=== PATIENT | female | born 1980 | race Caucasian/White ===

== ENCOUNTER 2019-07-28 23:25 | Emergency (ER) | payer BC ==
--- OUTSIDE RECORDS SUMMARY | 2019-07-28 23:27 | XMS REPORT ---
:1980 [facility] Address [address] [place] [address] Care Team Providers Name Role Phone Unavailable Unavailable Unavailable Problems This patient has no known problems. Allergies, Adverse Reactions, Alerts This patient has no known allergies or adverse reactions. Medications This patient has no known medications.
--- OUTSIDE RECORDS SUMMARY | 2019-07-28 23:28 | XMS REPORT | Summary of Care ---
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 [place] [address] Neoplasm of uncertain behavior of skin; [place] Sebaceous cyst; [facility] Melanocytic nevi of face [address] [place] [address] Allergies Active Allergy Reactions Severity Noted Date Comments Ycery-Hihfpniqkk-Awgtbys Unknown - See comments 05/24/2009 Childhood allergy jose miguel-Hc Dvsunuuq-Sywlgsddqr-Sign Unknown - See comments 01/22/2018 childhood -Hc documented as of this encounter (statuses as of 03/30/2019) Medications Medication Sig Dispensed Refills Start Date End Date Status methylPREDNISolone Take 21 tablets 1 Each 0 03/09/2018 Active (MEDROL, RADHA,) 4 mg by mouth tablets SEE-INSTRUCTIONS . follow package directions naproxen 375 mg tablet Take 1 tablet by 30 tablet 2 05/18/2018 Active mouth 2 (two) times daily with meals as needed for Pain (scale 7-10). predniSONE 20 mg Take 1 tablet by 5 tablet 0 09/17/2018 Active tabletIndications: mouth daily. Sciatica of left side methocarbamol (ROBAXIN) Take 1.5 tablets 90 tablet 2 09/28/2018 Active 500 mg by mouth 3 tabletIndications: (three) times Sacroiliac joint pain daily as needed for Pain (scale 4-6) or Pain (scale 7-10). gabapentin 300 mg Take 1 capsule 90 capsule 2 09/28/2018 Active capsuleIndications: by mouth 3 Sacroiliac joint pain (three) times daily. acetaminophen-codeine TAKE 1 TABLET BY 0 03/19/2019 Active 300-30 mg tablet MOUTH EVERY 6 HOURS NEEDED penicillin v potassium TAKE 1 TABLET BY 0 03/19/2019 Active 500 mg tablet MOUTH 4 TIMES A DAY ibuprofen 600 mg tablet TAKE 1 TABLET BY 0 03/19/2019 Active MOUTH EVERY 6 HOURS doxycycline 100 mg Take 1 capsule 28 capsule 0 03/30/2019 Active capsuleIndications: by mouth 2 (two) Hidradenitis suppurativa times daily. clindamycin 1 % Apply to 60 g 5 03/30/2019 Active gelIndications: affected area(s) Hidradenitis suppurativa 2 (two) times daily. 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 documented as of this encounter (statuses as of 03/30/2019) Resolved Problems Problem Noted Date Resolved Date Abdominal pain, generalized 04/15/2011 01/25/2018 Flatulence, eructation, and gas pain 04/15/2011 01/25/2018 documented as of this encounter (statuses as of 03/30/2019) Social History Tobacco Use Types Packs/Day Years Used Date Current Every Day Smoker Cigarettes 0.5 16 Smokeless Tobacco: Never Used Alcohol Use Drinks/Week oz/Week Comments Yes occassional Sex Assigned at Date Recorded Not on file Job Start Date Occupation Industry Not on file Not on file Not on file Travel History Travel Start Travel End No recent travel history available. documented as of this encounter Last Filed Vital Signs Not on filedocumented in this encounter Progress Notes Neo Guzman MD - 03/30/2019 10:10 AM CDT Chief Complaint: HPI Delia Call is a 38 year old female who presents to clinic as a new patient for skin check. Today she addresses "moles" on face, present for years. Denies pain or pruritus. No attempted treatments. She also complains of occasional "boils" in her armpits and groin, present for several years. She denies any activity today. Histories Past Medical History: Diagnosis Date Esophageal reflux Schwachman-Hilda syndrome PMH: Reviewed and noted as above (-) personal hx of skin cancer (-) family hx of skin cancer SH: Lives in [facility] Allergies Allergies Allergen Reactions Cortisporin [Yrady-Jrswsbsyus-Uklfvnyhel-Hc] Unknown - See comments Childhood allergy Cortisporin [Sjimeqjz-Pbixvanzvb-Empt-Hc] Unknown - See comments childhood Medications Current Outpatient Medications on File Prior to Visit Medication Sig Dispense Refill acetaminophen-codeine 300-30 mg tablet TAKE 1 TABLET BY MOUTH EVERY 6 HOURS NEEDED 0 ibuprofen 600 mg tablet TAKE 1 TABLET BY MOUTH EVERY 6 HOURS 0 penicillin v potassium 500 mg tablet TAKE 1 TABLET BY MOUTH 4 TIMES A DAY 0 gabapentin 300 mg capsule Take 1 capsule by mouth 3 (three) times daily. 90 capsule 2 methocarbamol (ROBAXIN) 500 mg tablet Take 1.5 tablets by mouth 3 (three) times daily as needed for Pain (scale 4-6) or Pain (scale 7-10). 90 tablet 2 predniSONE 20 mg tablet Take 1 tablet by mouth daily. 5 tablet 0 naproxen 375 mg tablet Take 1 tablet by mouth 2 (two) times daily with meals as needed for Pain (scale 7-10). 30 tablet 2 methylPREDNISolone (MEDROL, RADHA,) 4 mg tablets Take 21 tablets by mouth SEE- INSTRUCTIONS. followpackage directions 1 Each 0 No current facility-administered medications on file prior to visit. Review of Systems (-)=negative (+)=positive Constitutional: pain (+) Skin: itching (-), growth (+), rash (-) Heme: bleeding (-) Immunosuppressed: (-) Physical Exam There were no vitals taken for this visit. Positive (+), Negative (-) Consitutional: Appears stated age, in no acute distress Pulmonary: No increased work of breathing Psychiatric: Appropriate mood and affect FACE: Positive EYES: Negative NOSE: Negative EARS: Positive NECK: Positive BACK: Negative RIGHT ARM: See image LEFT ARM: Positive (-)=Negative,(+)=Positive Actinic Keratosis (A): erythematous scaling papules Long Hemaniogioma (CH): smooth red and purple papules Dermatitis Erythema (DE): mild to moderate erythema and scaling Dermatitis Lichenified (DL): lichenification and thickening Dermatitis Weeping (DW): weeping and excoriation Inflamed Seborrheic Keratosis (ISK): inflamed warty brown papules and plaques Millium (ML): Small white cystic papule Molluscum Contagiosum (MC): umbilicated papule Nevus Macular (NM): well circumscribed evenly pigmented macule Nevus Papular (INSIDE SALES SUPERVISOR): well circumscribed evenly pigmented papule Psoriasis Circumscribed (PC): well circumscribed erythema and scaling Psoriasis Diffuse (PD): diffuse patches of erythema and scaling Seborrheic Keratosis (SK): verrucous brown papules and plaques Scar (SR): cicatricial change Verruca Vulgarus (W): warty hyperkeratotic papule Assessment/Plan 1. Inflamed EIC with overlying nevus - Etiology and treatment options discussed - After obtaining verbal consent and performing time out, 1 lesion(s) were injected with kenalog 2.5mg/ml. A total of 0.2 ml were injected. Discussed potential for atrophy at the site of treatment. - Start Doxycycline 100mg BID x14 days 2. Hidradenitis suppurativa- bilateral axillae and groin - No activity on exam today (genital exam deferred today by patient) - Start Clindamycin gel BID to all affected areas - Start Hibiclens wash QD 3. Neoplasm of uncertain behavior of skin- L lower rodrigues DDX: benign scar vs DLE vs other - Patient reports it is a result of a previous abscess - Not addressed at length today - Reassess at [place] 4. Multiple benign nevi - Discussed etiology and treatment options - Benign appearing, however they are bothersome to the patient; may return for shave vs punch removal if desired RTC in 4-6 weeks I, Marcos Benjamin, am scribing for, and in the presence of, Dr. Neo Guzman MD who performed and/orordered the services described here-in. Marcos Benjamin 03/30/2019 11:23 I, Dr. Neo Guzman, personally performed and/or ordered the services described in this documentation, as scribed above by Marcos Benjamin in my presence , and it is both accurate and complete. Neo Guzman MD [facility] Dermatology, PGY-3 03/30/2019 6:45 PM documented in this encounter Plan of Treatment Health Maintenance Due Date Last Done Comments PNEUMOCOCCAL 0-64 YEARS COMBINED SERIES (1 1984 of 3 - PCV13) DTaP,Tdap,and Td Vaccines (1 - Tdap) 1997 PAP SMEAR 09/21/2012 09/21/2009, 10/26/2008 MAMMOGRAM 2018 INFLUENZA VACCINE (#1) 2019 documented as of this encounter Results Not on filedocumented in this encounter Visit Diagnoses Diagnosis Hidradenitis suppurativa - Primary Hidradenitis Neoplasm of uncertain behavior of skin Sebaceous cyst Melanocytic nevi of face Benign neoplasm of skin of other and unspecified parts of face documented in this encounter Insurance Payer Benefit Plan Subscriber ID Effective Dates Phone Address Type / Group BCBS OF [facility] [id number] 2018-Jaziel [phone] [address] PPO/POS [place] t [id number] [place] [address] (Work) [id number] documented as of this encounter
--- OUTSIDE RECORDS SUMMARY | 2019-07-28 23:28 | XMS REPORT | Summary of Care ---
:1980 Author Organization [facility] Address [address] [place] [address] Care Team Providers Name Role Phone Marietta Dunlap EZEQUIEL Primary Care Provider Encounter Details Date Type Department Care Team Description 03/30/2019 Orders Only [facility] Doctor Unassigned, No [address] [facility] [place] [address] [address] [place] [address] Allergies Active Allergy Reactions Severity Noted Date Comments Wpraq-Xgffvluuoc-Hkngpzl Unknown - See comments 05/24/2009 Childhood allergy jose miguel-Hc Onknakex-Xmpyrklqpb-Xegv Unknown - See comments 01/22/2018 childhood -Hc [...] 3 Sacroiliac joint pain (three) times daily. 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 documented as of this encounter (statuses [...] Signs Not on filedocumented in this encounter Plan of Treatment Date Type Specialty Care Team Description 03/30/2019 Office Visit Dermatology Dandy Florentino MD [address] [place] [phone] Neo Guzman MD [address] [place] [phone] Health Maintenance Due Date Last Done Comments PNEUMOCOCCAL 0-64 YEARS COMBINED SERIES (1 1984 of 3 - PCV13) DTaP,Tdap,and Td Vaccines (1 - Tdap) 1997 PAP SMEAR 09/21/2012 09/21/2009, 10/26/2008 MAMMOGRAM 2018 INFLUENZA VACCINE (#1) 2019 documented as of this encounter Procedures Procedure Name Priority Date/Time Associated Diagnosis Comments NO SHOW OR MISSED Routine 03/30/2019 9:46 AM APPOINTMENT POLICY CDT ACKNOWLEDGEMENT documented in this encounter Results Not on filedocumented in this encounter Insurance Payer Benefit Plan Subscriber ID Effective Dates Phone Address Type / Group [facility] [id number] 2018-Jaziel [phone] [address] PPO/POS [place] t [id number] [place] [address] documented as of this encounter
--- OUTSIDE RECORDS SUMMARY | 2019-07-28 23:28 | XMS REPORT | Summary of Care ---
:1980 Author Organization [facility] Address [address] [place] [address] Care Team Providers Name Role Phone Marietta Dunlap RN ORTHOPEDIC Primary Care Provider Reason for Visit Reason Comments Skin Check New Evaluation New Patient Encounter Details Date Type Department Care Team Description 03/30/2019 Office Visit [facility] Dandy Florentino MD [address] [place] [phone] Hidradenitis suppurativa (Primary Dx); Dermatology- Neo Guzman MD [address] [place] [address]. 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 Allergies Allergies Allergen Reactions Cortisporin [Nugdy-Pnvrzzubao-Nswfigncjz-Hc] Unknown - See comments Childhood allergy Cortisporin [Rwynktby-Mgjaqmfymo-Hrpv-Hc] Unknown - See comments childhood Medications Current [...] well circumscribed evenly pigmented macule Nevus Papular (MANAGER MARKET INTELLIGENCE): well circumscribed evenly pigmented papule Psoriasis Circumscribed [...] addressed at length today - Reassess at [place] 4. Multiple benign nevi - Discussed etiology [...] both accurate and complete. Neo Guzman MD [facility] Dermatology, PGY-3 03/30/2019 6:45 PM documented [...] Phone Address Type / Group BCBS OF [facility] [id number] 2018-Jaziel [phone] [address] PPO/POS [place] t [id number] [place] [address] (Work) [phone] documented as of this encounter
[2019-07-29 00:04] LABS: Urine Bacteria <20 /HPF (<20); Urine RBC 20-50 /HPF (NONE SEEN)
[2019-07-29 00:06] LABS: Urine Culture Reflex Order REFLEXED
[2019-07-29] MEDS ORDERED: FENTANYL CITR 100 MCG/2 ML ONE (00:33)
[2019-07-29] MEDS ORDERED: ONDANSETRON 4 MG/2 ML VIAL ONE (00:34)
[2019-07-29] MEDS ORDERED: CEFTRIAXONE/SWI 1gm 1 GM/10 ML SYR ONE (00:45)
[2019-07-29] MEDS ORDERED: NA CHLORIDE 0.9% 1,000 ML ONE (00:45)
[2019-07-29 00:56] LABS: Basophils % 0.4 % (0-1.3); Hematocrit 40.2 % (36.0-45.0); Lymphocytes % 26.7 % (15.3-44.8); MPV 7.7 fL (7.6-11.3); RBC Red Blood Cell Count 3.98 M/uL (3.86-4.86)
[2019-07-29 01:09] LABS: Albumin 3.6 g/dL (3.4-5.0); Bilirubin Direct 0.1 mg/dL (0-0.2); Bilirubin Total 0.2 mg/dL (0.2-1.0); Protein, Total 7.1 g/dL (6.4-8.2)
[2019-07-29 01:18] LABS: Urine Blood 2+ (NEG); Urine Glucose NEGATIVE (NEG); Urine Protein 2+ (NEG); Urine Specific Gravity 1.025 (1.005-1.030)
--- NOTE | 2019-07-29 02:22 | EDPHYS ---
Physician Documentation [facility] Name: Delia Call Age: 38 yrs Sex: Female : 1980 Arrival Date: 07/28/2019 Time: 23:27 Bed 19 Private MD: ED Physician Zoltan Baker HPI: 07/29 00:00 This 38 yrs old Female presents to ER via Ambulatory with complaints of Back cp Pain, Painful Urination. 00:00 The patient presents with pain that is acute, with no known mechanism of injury. The cp symptoms are located in the mid back area. Onset: The symptoms/episode began/occurred today. The pain radiates to the abdomen. Associated signs and symptoms: Pertinent positives: dysuria, Pertinent negatives: chest pain, constipation, fever, headache, incontinence, numbness, urinary retention, weakness. 00:00 Patient reports she was seen at clinic today and prescribed Macrobid for UTI today. cp Took 1 dose. 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 - Social history:: Smoking status: Patient uses tobacco products, smokes one pack cigarettes per day. - Ebola Screening: : Patient negative for fever greater than or equal to 101.5 degrees Fahrenheit, and additional compatible Ebola Virus Disease symptoms Patient denies exposure to infectious person Patient denies travel to an Ebola-affected area in the 21 days before illness onset No symptoms or risks identified at this time. ROS: 07/29 00:05 Constitutional: Negative for body aches, chills, fever, poor PO intake. cp 00:05 Eyes: Negative for injury, pain, redness, and discharge. cp 00:05 ENT: Negative for drainage from ear(s), ear pain, sore throat, difficulty swallowing, difficulty handling secretions. 00:05 Cardiovascular: Negative for chest pain. 00:05 Respiratory: Negative for cough, shortness of breath, wheezing. 00:05 Abdomen/GI: Positive for abdominal pain, Negative for vomiting, diarrhea, constipation. 00:05 Back: Positive for flank pain, bilaterally. 00:05 : Positive for urinary symptoms, hematuria, Negative for vaginal bleeding, vaginal discharge. 00:05 MS/extremity: Negative for injury or acute deformity, decreased range of motion. 00:05 Neuro: Negative for altered mental status, headache, numbness, tingling, weakness. 00:05 All other systems are negative. Exam: 00:12 Constitutional: The patient appears in no acute distress, alert, awake, non-toxic, well cp developed, well nourished, uncomfortable. 00:12 Head/Face: Normocephalic, atraumatic. cp 00:12 Eyes: Periorbital structures: appear normal, Conjunctiva: normal, no exudate, no injection, Sclera: no appreciated abnormality, Lids and lashes: appear normal, bilaterally. 00:12 ENT: External ear(s): are unremarkable, Nose: is normal, Mouth: Lips: moist, Oral mucosa: pink and intact, moist, Posterior pharynx: is normal, airway is patent, no erythema, no exudate. 00:12 Neck: ROM/movement: is normal, is supple, without pain, no range of motions limitations, no nuchal rigidity. 00:12 Chest/axilla: Inspection: normal, Palpation: is normal, no crepitus, no tenderness. 00:12 Cardiovascular: Rate: normal, Rhythm: regular, Edema: is not appreciated. 00:12 Respiratory: the patient does not display signs of respiratory distress, Respirations: normal, no use of accessory muscles, no retractions, no splinting, no tachypnea, labored breathing, is not present, Breath sounds: are clear throughout, no decreased breath sounds, no stridor, no wheezing. 00:12 Abdomen/GI: Inspection: abdomen appears normal, Bowel sounds: active, all quadrants, Palpation: soft, in all quadrants, mild abdominal tenderness, in all quadrants, voluntary guarding, is not appreciated, involuntary guarding, is not appreciated. 00:12 Back: CVA tenderness, is noted bilaterally. 00:12 Neuro: Orientation: to person, place \T\ time. Mentation: is normal, Motor: moves all fours, strength is normal, Sensation: is normal. Vital Signs: 07/28 23:43 BP 110 / 85; Pulse 74; Resp 16; Temp 98.0(O); Pulse Ox 97% on R/A; Weight 63.5 kg; iw Height 4 ft. 9 in. (144.78 cm); Pain 10/10; 07/29 00:30 BP 117 / 85; Pulse 97; Resp 16; Pulse Ox 100% ; rv 01:15 BP 115 / 86; Pulse 91; Resp 15; Pulse Ox 98% on R/A; rv 07/28 23:43 Body Mass Index 30.29 (63.50 kg, 144.78 cm) iw MDM: 07/28 23:41 Patient medically screened. cp 07/29 00:15 Differential diagnosis: Ureterolithiasis UTI, sepsis, appendicitis, colitis. cp 02:20 Data reviewed: vital signs, nurses notes, lab test result(s), radiologic studies, CT cp scan. 02:20 Counseling: I had a detailed discussion with the patient and/or guardian regarding: the cp historical points, exam findings, and any diagnostic results supporting the discharge/admit diagnosis, lab results, radiology results, to return to the emergency department if symptoms worsen or persist or if there are any questions or concerns that arise at home. Response to treatment: the patient's symptoms have markedly improved after treatment, VSS. Pain improved. Will discharge to home for continued monitoring. Patient to stop Macrobid and start Bactrim. 07/28 23:48 Order name: Urine Microscopic Only; Complete Time: 00:36 07/29 01:35 Interpretation: Normal except: UWBC >50; URBC 20-50. 07/28 23:57 Order name: Urine Dipstick--Ancillary (enter results); Complete Time: 34 [facility] 07/29 01:34 Interpretation: Normal except: UBLD 2+; UPROT 2+; UESTR TRACE. 07/28 23:57 Order name: Urine --Ancillary (enter results); Complete Time: :34 [facility] 07/29 00:09 Order name: Basic Metabolic Panel; Complete Time: :34 07/29 01:35 Interpretation: Normal except: CL 108; GLUC 121; GFR 88. cp 07/29 00:09 Order name: CBC with Diff; Complete Time: :34 07/29 01:35 Interpretation: Normal except: MCV 101.0. cp 07/29 00:09 Order name: Creatinine for Radiology; Complete Time: 07/29 00:09 Order name: Hepatic Function; Complete Time: iw 07/29 00:09 Order name: Lipase; Complete Time: iw 07/29 00:13 Order name: Urine Culture EDMS 07/29 00:38 Order name: CT Stone Protocol 07/28 23:48 Order name: Urine Dipstick-Ancillary (obtain specimen); Complete Time: 23:51 cp 07/28 23:48 Order name: Urine Test (obtain specimen); Complete Time: 23:52 cp 07/29 00:09 Order name: IV Saline Lock; Complete Time: 00: iw 07/29 00:09 Order name: Labs collected and sent; Complete Time: 00: iw 07/29 01:36 Order name: PO challenge; Complete Time: 02:06 cp Administered Medications: 00:37 Drug: fentaNYL (PF) 25 mcg Route: IVP; Site: left antecubital; iw 00:57 Follow up: Response: No adverse reaction; Pain is decreased iw 00:37 Drug: Zofran 4 mg Route: IVP; Site: left antecubital; iw 00:57 Follow up: Response: No adverse reaction iw 00:54 Drug: NS 0.9% 1000 ml Route: IV; Rate: 1 bolus; Site: left antecubital; iw 02:16 Follow up: IV Status: Completed infusion; IV Intake: 1000ml rv 00:55 Drug: Rocephin - (cefTRIAXone) 1 grams Route: IVPB; Infused Over: 30 mins; Site: left iw antecubital; 02:17 Follow up: IV Status: Completed infusion rv Disposition: 07/29/19 02:21 Discharged to Home. Impression: Urinary tract infection, site not specified, Low back pain. - Condition is Stable. - Discharge Instructions: Pyelonephritis, Adult. - Prescriptions for Zofran 4 mg Oral Tablet - take 1 tablet by ORAL route every 12 hours As needed; 20 tablet. Tramadol 50 mg Oral Tablet - take 1 tablet by ORAL route every 8 hours as needed; 15 tablet. Bactrim DS 800- 160 mg Oral Tablet - take 1 tablet by ORAL route every 12 hours for 10 days; 20 tablet. - Medication Reconciliation Form, Thank You Letter, Antibiotic Education, Prescription Opioid Use, Work release form form. - Follow up: Private Physician; When: 1 - 2 days; Reason: Worsening of condition. - Problem is new. - Symptoms have improved. Addendum: 07/30/2019 07:32 Co-signature as Attending Physician, Zoltan Baker MD I agree with the assessment and t w4 plan of care. Signatures: Dispatcher [employer] Juani Moore RN RN iw Abebe Betancourt, HECTOR [place] Zoltan Roberts MD MD tw4 Dedrick Shankar RN RN rv Corrections: (The following items were deleted from the chart) 07/29 02:28 02:21 07/29/2019 02:21 Discharged to Home. Impression: Urinary tract infection, site rv not specified; Low back pain. Condition is Stable. Forms are Work release form, Medication Reconciliation Form, Thank You Letter, Antibiotic Education, Prescription Opioid Use. Follow up: Private Physician; When: 1 - 2 days; Reason: Worsening of condition. Problem is new. Symptoms have improved. cp
--- NOTE | 2019-07-29 02:22 | ER ---
Nurse's Notes [facility] Name: Delia Call Age: 38 yrs Sex: Female : 1980 Arrival Date: 07/28/2019 Time: 23:27 Bed 19 Private MD: Diagnosis: Urinary tract infection, site not specified;Low back pain Presentation: 07/28 23:42 Presenting complaint: Patient states: pain with urination X 2 days, was seen at clinic iw today and prescribed Macrobid, now has pain to lower abd and mid back. Transition of care: patient was not received from another setting of care. Onset of symptoms was July 26, 2019. Risk Assessment: Do you want to hurt yourself or someone else? Patient reports no desire to harm self or others. Initial Sepsis Screen: Does the patient meet any 2 criteria? No. Patient's initial sepsis screen is negative. Does the patient have a suspected source of infection?. Care prior to arrival: Medication(s) given: macrobid 100 PO. 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 - Social history:: Smoking status: Patient uses tobacco products, smokes one pack cigarettes per day. - Ebola Screening: : Patient negative for fever greater than or equal to 101.5 degrees Fahrenheit, and additional compatible Ebola Virus Disease symptoms Patient denies exposure to infectious person Patient denies travel to an Ebola-affected area in the 21 days before illness onset No symptoms or risks identified at this time. Screenin/16 00:29 Abuse screen: Denies threats or abuse. Denies injuries from another. Nutritional iw screening: No deficits noted. Tuberculosis screening: No symptoms or risk factors identified. Fall Risk IV access (20 points). Assessment: 00:28 General: Appears uncomfortable, Behavior is calm, cooperative. Pain: Complains of pain iw in back, right lower quadrant and left lower quadrant Pain currently is 10 out of 10 on a pain scale. Neuro: Level of Consciousness is awake, alert, obeys commands, Oriented to person, place, time, situation, Moves all extremities. Full function. Cardiovascular: Patient's skin is warm and dry. Respiratory: Respiratory effort is even, unlabored, Respiratory pattern is regular, symmetrical. GI: Reports lower abdominal pain. : Reports burning with urination, pain in bilateral in suprapubic area flank(s). Derm: Skin is intact, is healthy with good turgor. Musculoskeletal: Range of motion: intact in all extremities. 00:56 Reassessment: Patient appears in no apparent distress at this time. Patient and/or iw family updated on plan of care and expected duration. Pain level reassessed. Patient is alert, oriented x 3, equal unlabored respirations, skin warm/dry/pink. pt has been medicated for pain, IVF infusing freely to LAC, Rocephin given, awaiting CT. Vital Signs: 07/28 23:43 BP 110 / 85; Pulse 74; Resp 16; Temp 98.0(O); Pulse Ox 97% on R/A; Weight 63.5 kg; iw Height 4 ft. 9 in. (144.78 cm); Pain 10/10; 07/29 00:30 BP 117 / 85; Pulse 97; Resp 16; Pulse Ox 100% ; rv 01:15 BP 115 / 86; Pulse 91; Resp 15; Pulse Ox 98% on R/A; rv 07/28 23:43 Body Mass Index 30.29 (63.50 kg, 144.78 cm) iw ED Course: 07/28 23:27 Patient arrived in ED. ds1 23:34 Juani Beckwith, WALTER is Primary Nurse. iw 23:36 Abebe Betancourt PA is PHCP. cp 23:36 Zoltan Baker MD is Attending Physician. cp 23:43 Triage completed. iw 23:44 Arm band placed on. iw 07/29 00:00 Patient has correct armband on for positive identification. Pulse ox on. NIBP on. rv 00:15 Missed attempt(s): 22 gauge in right antecubital area. Bleeding controlled, band aid iw applied, catheter tip intact. 00:25 Inserted saline lock: 22 gauge in left antecubital area, using aseptic technique. Blood rv collected. 01:19 CT completed. Patient tolerated procedure well. Patient moved to CT via wheelchair. Patient moved back from CT. 01:26 CT Stone Protocol In Process Unspecified. EDMS 02:23 No provider procedures requiring assistance completed. IV discontinued, intact, rv bleeding controlled, No redness/swelling at site. Pressure dressing applied. Administered Medications: 00:37 Drug: fentaNYL (PF) 25 mcg Route: IVP; Site: left antecubital; iw 00:57 Follow up: Response: No adverse reaction; Pain is decreased iw 00:37 Drug: Zofran 4 mg Route: IVP; Site: left antecubital; iw 00:57 Follow up: Response: No adverse reaction iw 00:54 Drug: NS 0.9% 1000 ml Route: IV; Rate: 1 bolus; Site: left antecubital; iw 02:16 Follow up: IV Status: Completed infusion; IV Intake: 1000ml rv 00:55 Drug: Rocephin - (cefTRIAXone) 1 grams Route: IVPB; Infused Over: 30 mins; Site: left iw antecubital; 02:17 Follow up: IV Status: Completed infusion rv Intake: 02:16 IV: 1000ml; Total: 1000ml. rv Outcome: 02:21 Discharge ordered by MD. cp 02:24 Discharged to home ambulatory, with family. rv 02:24 Condition: good 02:24 Discharge instructions given to patient, family, Instructed on discharge instructions, follow up and referral plans. medication usage, Demonstrated understanding of instructions, follow-up care, medications, Prescriptions given X 3. 02:28 Patient left the ED. rv Signatures: Dispatcher [employer] EDMA Byron Gonzalez Amy Kovacs ds1 Juani Beckwith RN RN iw Abebe Betancourt PA PA cp Vicente, Ronaldo, RN RN rv Corrections: (The following items were deleted from the chart) 07/28 23:49 23:43 Resp 16bpm; 63.5 kg; Height 4 ft. 9 in.; BMI: 30.3; Pain 10/10; iw iw 23:57 23:43 BP 110 / 85; Pulse 74bpm; Resp 16bpm; Pulse Ox 97% RA; 63.5 kg; Height 4 ft. 9 iw in.; BMI: 30.2; Pain 10/10; iw
[2019-07-29 03:31] VITALS: TEMP 98
[2019-07-29 03:33] VITALS: BP 115/86; O2SAT 98
--- NOTE | 2019-07-29 11:19 | RAD REPORT ---
EXAM DESCRIPTION: Stone Protocol CLINICAL HISTORY: FLANK PAIN TECHNIQUE: Contiguous axial images obtained through the abdomen and pelvis without IV contrast. Carla nal and sagittal reformatted images were provided. This exam was performed according to our departmental dose-optimization program, which includes autom ated exposure control, adjustment of the mA and/or kV according to patient size and/or use of iterati ve reconstruction technique. COMPARISON: None available for comparison. FINDINGS: Lung bases: Mosaic attenuation bilaterally. Liver: Grossly unremarkable Gallbladder and biliary system: Unremarkable Pancreas: Diffuse fatty parenchymal replacement. Spleen: Grossly unremarkable Adrenals: Unremarkable Kidneys: No calculi. No hydronephrosis. Bowel: Moderate stool within the proximal to mid large bowel. No obstruction. No appreciable mucosal thickening. Appendix: Normal caliber appendix. No findings to suggest acute appendicitis. Urinary bladder: The urinary bladder is decompressed. Reproductive: Unremarkable as visualized Lymph nodes: No pathologically enlarged lymph nodes. Peritoneum: No focal fluid collection. No free air. Vessels: Minimal atherosclerotic disease. No abdominal aortic aneurysm. Abdominal wall: Tiny fat-containing umbilical hernia. Bones: Mild multilevel spondylosis. No acute fracture. IMPRESSION: 1. No renal, ureteral or bladder calculi. No evidence for renal obstruction. 2. Mosaic attenuation within the lungs bilaterally. Differential considerations include small airwa ys disease, small vessel disease and interstitial infiltrates. 3. Other findings as above. Electronically signed by: Jacob Sherman MD 07/29/2019 1:39 AM REPTILE KEEPER Due to temporary technical issues with the PACS/Fluency reporting system, reports are being signed by the in house radiologist as a courtesy to ensure prompt reporting. The interpreting radiologist is f ully responsible for the content of the report.
== END 2019-07-29 02:28 | disposition home or self-care (01) ==
LOC: ER 23:25
DX: N39.0 Urinary tract infection, site not specified (principal)
CPT/HCPCS: 96365; 87088; 85025; 87086; 80048; 36415; 81025; 80076; 83690; 76377; 74176; 96375; 99284; J3010; J0696; J7030; J2405; 81003; 81015

== ENCOUNTER 2020-10-03 09:45 | Emergency (ER) | payer BC, SELFPAY ==
--- OUTSIDE RECORDS SUMMARY | 2020-10-03 09:48 | XMS REPORT | Continuity of Care Document ---
:1980 Author Organization [facility] t Address [address] [place] [address] Care Team Providers Name Role Phone Thomas RENE Attending Clinician Problems This patient has no known problems. Allergies, Adverse Reactions, Alerts This patient has no known allergies or adverse reactions. Medications This patient has no known medications. Procedures This patient has no known procedures. Encounters Start End Encounter Admission Attending Care Care Encounter Source Date/Time Date/Time Type Type Clinicians Facility Department ID 2019-03-30 2019-03-30 Office TOBY Guzman [id number] 09:47:02 11:32:15 Visit [facility] [id number] [facility] [id number] Results This patient has no known results.
[2020-10-03 10:21] LABS: Absolute Lymphocytes (CBC) 0.7 K/uL (0.7-4.9); Basophils % 0.4 % (0-1.3); Hematocrit 36.5 % (36.0-45.0); Lymphocytes % 9.1 % (15.3-44.8); MPV 7.3 fL (7.6-11.3); RBC Red Blood Cell Count 3.64 M/uL (3.86-4.86)
[2020-10-03 10:37] LABS: Protime INR 1.1
[2020-10-03] MEDS ORDERED: MORPHINE 2 MG/ML SYR ONE (10:38)
[2020-10-03] MEDS ORDERED: ONDANSETRON 4 MG/2 ML VIAL ONE (10:39)
[2020-10-03 10:56] LABS: ALT/SGPT 27 U/L (12-78); AST/SGOT 18 U/L (15-37); Albumin 3.4 g/dL (3.4-5.0); Alkaline Phosphatase 94 U/L (45-117); BUN Blood Urea Nitrogen 13 mg/dL (7-18); Bicarbonate 28 mmol/L (21-32); Bilirubin Direct < 0.1 mg/dL (0-0.2); Bilirubin Total 0.3 mg/dL (0.2-1.0); Glucose Level 104 mg/dL (74-106); NT PRO-BNP 35 pg/mL (<125); Potassium 3.8 mmol/L (3.5-5.1); Sodium Level 141 mmol/L (136-145); Troponin (Emerg Dept Use Only) < 0.02 ng/mL (0.0-0.045)
[2020-10-03 11:18] LABS: Urine Blood TRACE (NEG); Urine Glucose NEGATIVE (NEG); Urine Protein NEGATIVE (NEG); Urine Specific Gravity 1.025 (1.005-1.030)
--- NOTE | 2020-10-03 11:24 | RAD REPORT ---
EXAM DESCRIPTION: RAD - Chest Single View - 10/03/2020 10:35 am CLINICAL HISTORY: CHEST PAIN COMPARISON: June 2016 portable chest TECHNIQUE: AP portable chest image was obtained 10/03/2020 10:35 am . FINDINGS: Lung volumes are low. No focal consolidations seen. Perihilar markings are increased sligh tly from comparison. There is minimal alveolar opacities evident. Heart size is minimally increased from compares. No measurable pleural effusion and no pneumothorax. No acute bony abnormality seen. No acute aortic findings suspected. IMPRESSION: Heart, vasculature and lung markings are fractionally increased from comparison. Patient is relatively on. Correlation is needed with any failure or volume overload findings.
--- NOTE | 2020-10-03 12:58 | RAD REPORT ---
EXAM DESCRIPTION: CT - Chest For Pe Angio - 10/03/2020 12:48 pm CLINICAL HISTORY: Chest pain. CHEST PAIN COMPARISON: No comparisons TECHNIQUE: CT angiogram of the pulmonary arteries was performed with MIP. All CT scans are performed using dose optimization technique as appropriate and may include automated exposure control or mA/KV adjustment according to patient size. FINDINGS: No evidence of pulmonary thromboembolism. No acute aortic finding demonstrated. Mild bilateral ground-glass lung opacities are present likely representing pulmonary edema. No significant pericardial or pleural fluid. No concerning bony finding. IMPRESSION: No evidence of pulmonary thromboembolism. Mild pulmonary edema suspected.
--- NOTE | 2020-10-03 13:35 | ER ---
Nurse's Notes [facility] Name: Delia Call Age: 39 yrs Sex: Female : 1980 Arrival Date: 10/03/2020 Time: 09:46 Bed 13 Private MD: Diagnosis: Chest pain, unspecified Presentation: 10/03 09:46 Chief complaint: EMS states: Sudden onset crushing chest pain while lying in bed this hb morning. SpO2 98% on RA, ASA 324 PO and Fentanyl 50 mcg administered to 20g RAC WASHER HAND. Coronavirus screen: At this time, the client does not indicate any symptoms associated with coronavirus-19. Ebola Screen: No symptoms or risks identified at this time. Initial Sepsis Screen: Does the patient meet any 2 criteria? No. Patient's initial sepsis screen is negative. Does the patient have a suspected source of infection? No. Patient's initial sepsis screen is negative. Risk Assessment: Do you want to hurt yourself or someone else? Patient reports no desire to harm self or others. Onset of symptoms was October 03, 2020. 09:46 Method Of Arrival: EMS: [email or web address] 09:46 Acuity: DOROTEO 3 hb Historical: - Allergies: 10:47 Neomycin Sulfate; ll1 10:47 colistin sulfate; ll1 10:47 thonzonium; ll1 10:47 hydrocortisone; ll1 - PMHx: 10:47 schwan \T\ hilda syndrome; Shwachman-Hilda syndrome; ll1 - PSHx: 10:47 ; Knee surgery; ll1 - Immunization history:: Adult Immunizations up to date. - Social history:: Smoking status: unknown. Screenin:46 Abuse screen: Denies threats or abuse. Nutritional screening: No deficits noted. ll1 Tuberculosis screening: No symptoms or risk factors identified. Fall Risk IV access (20 points). Total Broderick Fall Scale indicates No Risk (0-24 pts). Assessment: 09:55 General: Appears in no apparent distress. Behavior is calm, cooperative, appropriate ll1 for age. Pain: Complains of pain in anterior aspect of left upper chest Pain does not radiate. Pain began 2 hours ago. Neuro: No deficits noted. Cardiovascular: Reports chest pain, Heart tones S1 S2 Capillary refill < 3 seconds Clubbing of nail beds is absent JVD is absent Patient's skin is warm and dry. Pulses are all present. Rhythm is regular. Respiratory: No deficits noted. Breath sounds are clear bilaterally. 11:00 Reassessment: No changes from previously documented assessment. Patient and/or family ll1 updated on plan of care and expected duration. Pain level reassessed. Patient is alert, oriented x 3, equal unlabored respirations, skin warm/dry/pink. 12:02 General: Appears in no apparent distress. uncomfortable, Behavior is calm, cooperative. vg1 Pain: Complains of pain in anterior aspect of left upper chest Pain currently is 6 out of 10 on a pain scale. Quality of pain is described as dull, sharp. Neuro: Level of Consciousness is awake, alert, obeys commands, Oriented to person, place, time, situation. Cardiovascular: Patient's skin is warm and dry. Respiratory: Airway is patent Respiratory effort is even, unlabored. GI: No signs and/or symptoms were reported involving the gastrointestinal system. : No signs and/or symptoms were reported regarding the genitourinary system. EENT: No signs and/or symptoms were reported regarding the EENT system. Derm: Skin is intact, Skin is pink, warm \T\ dry. Musculoskeletal: Circulation, motion, and sensation intact. 13:32 Reassessment: Patient appears in no apparent distress at this time. No changes from vg1 previously documented assessment. Patient and/or family updated on plan of care and expected duration. Pain level reassessed. Patient is alert, oriented x 3, equal unlabored respirations, skin warm/dry/pink. Vital Signs: 09:46 BP 126 / 73; Pulse 99; Resp 18; Pulse Ox 98% on R/A; Pain 8/10; hb 10:08 BP 126 / 73; Pulse 101; Resp 18; Temp 97.3(O); Pulse Ox 100% on R/A; sr5 11:53 BP 114 / 83; Pulse 93; Resp 17; Pulse Ox 98% ; ll1 12:02 BP 98 / 62; Pulse 99; Resp 18; Pulse Ox 97% on R/A; vg1 13:54 BP 93 / 66; Pulse 98; Resp 16; Pulse Ox 98% on R/A; vg1 ED Course: 09:46 Patient arrived in ED. hb 09:46 Arm band placed on. hb 09:47 Mickail[facility] Priyank, [facility] 09:47 Poncho Camp MD is Attending Physician. jmm 09:51 Triage completed. hb 09:53 Alivia Pandya, WALTER is Primary Nurse. ll1 10:08 EKG completed in triage. Results shown to MD. sr5 10:10 Patient has correct armband on for positive identification. Bed in low position. Call sr5 light in reach. Side rails up X 1. radiation monitor on. Pulse ox on. NIBP on. Warm blanket given. 10:10 Initial lab(s) drawn, by me, sent to lab. Maintain EMS IV. Dressing intact. Good blood sr5 return noted. Site clean \T\ dry. Gauge \T\ site: 20 G RAC with twin cath extension, flushed easily, wasted 10 mL blood prior to specimen collection, flushed easily following lab collection. Pt denies discomfort at IV site.. Patient maintains SpO2 saturation greater than 95% on room air. 10:35 XRAY Chest (1 view) In Process Unspecified. EDMS 10:47 No provider procedures requiring assistance completed. Patient did not have IV access ll1 during this emergency room visit. 12:44 Notified Nurse Practitioner and/or Physician Factory Helper of a critical lab result(s), tw2 D-Dimer 635, provider HECTOR Parks notified. 12:49 CT Chest For PE Angio In Process Unspecified. EDMS 13:55 IV discontinued, intact, bleeding controlled, No redness/swelling at site. Pressure vg1 dressing applied. Administered Medications: 10:47 Drug: Zofran (Ondansetron) 4 mg Route: IVP; Site: right antecubital; sr5 13:56 Follow up: Response: No adverse reaction vg1 10:50 Drug: morphine 2 mg Route: IVP; Infused Over: 2 mins; Site: right antecubital; sr5 13:56 Follow up: Response: No adverse reaction vg1 Outcome: 13:34 Discharge ordered by . jm 13:55 Discharged to home via wheelchair. vg1 13:55 Condition: stable 13:55 Discharge instructions given to patient, Instructed on discharge instructions, follow up and referral plans. medication usage, Demonstrated understanding of instructions, follow-up care, medications, Prescriptions given X 2. 13:58 Patient left the ED. vg1 Signatures: Dispatcher [employer] Priyank Padilla PA PA jmm Baxter, Heather, RN RN hb Maria Teresa Nuñez, RN RN tw2 Zen Maher RN RN sr5 Florinda Nicholas RN RN vg1 Alivia Pandya, RN RN ll1
--- NOTE | 2020-10-03 13:35 | EDPHYS ---
Physician Documentation [facility] Name: Delia Call Age: 39 yrs Sex: Female : 1980 Arrival Date: 10/03/2020 Time: 09:46 Bed 13 Private MD: ED Physician Poncho Camp HPI: 10/03 09:50 This 39 yrs old Female presents to ER via Unassigned with complaints of Chest [facility] Pain. 09:50 The patient or guardian reports chest pain that is located primarily in the anterior [facility] chest wall, left. Onset: this morning. The pain does not radiate. Associated signs and symptoms: Pertinent negatives: shortness of breath. The chest pain is described as aching, sharp. This is a 39 year old female with no known chronic medical conditions that presents to the ED with complaints of chest pain beginning this morning. Exact onset unknown. Patient denies history of CAD. 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 Patient states she does perform lifting and strenuous activity but can not recall a known injury. Patient does smoke tobacco and has a family history of CAD. . Historical: - Allergies: 10:47 Neomycin Sulfate; ll1 10:47 colistin sulfate; ll1 10:47 thonzonium; ll1 10:47 hydrocortisone; ll1 - PMHx: 10:47 schwan \T\ hilda syndrome; Shwachman-Hilda syndrome; ll1 - PSHx: 10:47 ; Knee surgery; ll1 - Immunization history:: Adult Immunizations up to date. - Social history:: Smoking status: unknown. ROS: 09:50 Constitutional: Negative for fever, chills, and weight loss. jmm 09:50 Respiratory: Negative for shortness of breath, cough, wheezing, and pleuritic chest pain, Neuro: Negative for headache, weakness, numbness, tingling, and seizure. 09:50 Cardiovascular: Positive for chest pain. 09:50 All other systems are negative. Exam: 09:50 Head/Face: atraumatic. Eyes: EOMI, no conjunctival erythema appreciated ENT: Moist jmm Mucus Membranes Neck: Trachea midline, Supple 09:50 Cardiovascular: Regular rate and rhythm. No edema appreciated Respiratory: Normal respirations, no respiratory distress appreciated Abdomen/GI: Non distended, soft Back: Normal ROM Skin: General appearance color normal MS/ Extremity: Moves all extremities, no obvious deformities appreciated, no edema noted to the lower extremities Neuro: Awake and alert, normal gait Psych: Behavior is normal, Mood is normal, Patient is cooperative and pleasant 09:50 Constitutional: The patient appears alert, awake, anxious, uncomfortable. 09:50 Chest/axilla: Palpation: tenderness, that is moderate, of the anterior aspect of left upper chest, that totally reproduces the patient's complaints. 10:06 ECG was reviewed by the Attending Physician. [facility] Vital Signs: 09:46 BP 126 / 73; Pulse 99; Resp 18; Pulse Ox 98% on R/A; Pain 8/10; hb 10:08 BP 126 / 73; Pulse 101; Resp 18; Temp 97.3(O); Pulse Ox 100% on R/A; sr5 11:53 BP 114 / 83; Pulse 93; Resp 17; Pulse Ox 98% ; ll1 12:02 BP 98 / 62; Pulse 99; Resp 18; Pulse Ox 97% on R/A; vg1 13:54 BP 93 / 66; Pulse 98; Resp 16; Pulse Ox 98% on R/A; vg1 MDM: 09:48 Patient medically screened. [facility] 10:06 The patient was not given aspirin in the Emergency Department. Administered by EMS. [facility] 13:32 Data reviewed: vital signs, nurses notes. Counseling: I had a detailed discussion with [facility] the patient and/or guardian regarding: the historical points, exam findings, and any diagnostic results supporting the discharge/admit diagnosis, lab results, radiology results, the need for outpatient follow up, to return to the emergency department if symptoms worsen or persist or if there are any questions or concerns that arise at home. 13:32 ED course: Patient is alert and non toxic in appearance in the ED. CP has decreased. I [facility] do not suspect ACS at this time. HEART SCORE = 1. Negative CTA for PE. Patient advised to follow up with pcp and otherwise given strict return precautions patient understood and agrees with the plan of care. . 10/03 09:49 Order name: Basic Metabolic Panel [facility] 10/03 09:49 Order name: CBC with Diff [facility] 10/03 09:49 Order name: LFT's; Complete Time: 11:00 [facility] 10/03 09:49 Order name: Magnesium; Complete Time: 11:00 [facility] 10/03 09:49 Order name: NT PRO-BNP; Complete Time: 11:00 [facility] 10/03 09:49 Order name: PT-INR; Complete Time: 10:39 [facility] 10/03 09:49 Order name: Troponin (emerg Dept Use Only); Complete Time: 11:00 [facility] 10/03 09:49 Order name: Basic Metabolic Panel; Complete Time: 11:00 [facility] 10/03 09:49 Order name: CBC with Automated Diff; Complete Time: 10:26 [facility] 10/03 10:07 Order name: D-Dimer [facility] 10/03 10:07 Order name: D-Dimer; Complete Time: 12:32 [facility] 10/03 11:13 Order name: Urine Dipstick--Ancillary (enter results); Complete Time: 11:28 10/03 11:13 Order name: Urine --Ancillary (enter results); Complete Time: 11:28 10/03 12:44 Order name: Troponin (emerg Dept Use Only); Complete Time: 13:31 [facility] 10/03 09:49 Order name: XRAY Chest (1 view); Complete Time: 11:28 [facility] 10/03 09:49 Order name: EKG; Complete Time: 09:50 [facility] 10/03 09:49 Order name: Cardiac monitoring; Complete Time: 10:08 [facility] 10/03 09:49 Order name: EKG - Nurse/Tech; Complete Time: 10:08 [facility] 10/03 09:49 Order name: IV Saline Lock; Complete Time: 10:08 [facility] 10/03 09:49 Order name: Labs collected and sent; Complete Time: 10:08 [facility] 10/03 09:49 Order name: O2 Per Protocol; Complete Time: 10:08 [facility] 10/03 09:49 Order name: O2 Sat Monitoring; Complete Time: 10:08 [facility] 10/03 10:41 Order name: Urine Dipstick-Ancillary (obtain specimen); Complete Time: 11:54 [facility] 10/03 10:41 Order name: Urine Test (obtain specimen); Complete Time: 11:54 [facility] 10/03 11:48 Order name: CT Chest For PE Angio; Complete Time: 13:02 [facility] EC:06 Rate is 99 beats/min. Rhythm is regular. QRS [place] is Normal. [place] interval is normal. QRS jmm interval is normal. QT interval is normal. No Q waves. T waves are Normal. No ST changes noted. Reviewed by me. Administered Medications: 10:47 Drug: Zofran (Ondansetron) 4 mg Route: IVP; Site: right antecubital; sr5 13:56 Follow up: Response: No adverse reaction vg1 10:50 Drug: morphine 2 mg Route: IVP; Infused Over: 2 mins; Site: right antecubital; sr5 13:56 Follow up: Response: No adverse reaction vg1 Disposition: 14:41 Co-signature as Attending Physician, Poncho Camp MD. rn Disposition: 10/03/20 13:34 Discharged to Home. Impression: Chest pain, unspecified. - Condition is Stable. - Discharge Instructions: Nonspecific Chest Pain. - Prescriptions for Medrol (Alberto) 4 mg Oral Tablets, Dose Pack - take 1 tablet by ORAL route as directed - follow package instructions; 1 packet. orphenadrine citrate 100 mg Oral Tablet Sustained Release - take 1 tablet by ORAL route 2 times per day As needed; 20 tablet. - Medication Reconciliation Form, Thank You Letter, Antibiotic Education, Prescription Opioid Use form. - Follow up: Private Physician; When: 2 - 3 days; Reason: Recheck today's complaints, Continuance of care, Re-evaluation by your physician. Signatures: Dispatcher [employer] EDMS Priyank Mcnair PA PA jmm Nieto, Roman, MD MD rn Resecker, Sam RN RN sr5 Florinda Nicholas RN RN vg1 Alivia Pandya RN RN ll1 Corrections: (The following items were deleted from the chart) 13:58 13:34 10/03/2020 13:34 Discharged to Home. Impression: Chest pain, unspecified. vg1 Condition is Stable. Forms are Medication Reconciliation Form, Thank You Letter, Antibiotic Education, Prescription Opioid Use. Follow up: Private Physician; When: 2 - 3 days; Reason: Recheck today's complaints, Continuance of care, Re-evaluation by your physician. [facility]
[2020-10-03 14:06] VITALS: TEMP 97.3
[2020-10-03 14:10] VITALS: BP 93/66; O2SAT 98
--- NOTE | 2020-10-04 07:04 | EKG ---
Test Date: 2020-10-03 Test Time: 09:50:34 Sanitary Chemist: SIMON MEASUREMENT RESULTS: Intervals: Rate: 99 IN: 130 QRSD: 78 QT: 338 QTc: 433 [place]: P: 57 IN: 130 QRS: 64 T: 36 INTERPRETIVE STATEMENTS: Normal sinus rhythm Normal ECG Compared to ECG 07/12/2016 19:00:04 Sinus tachycardia no longer present Electronically Signed On 10-04-20 07:02:31 CDT by Bar Henning
== END 2020-10-03 13:58 | disposition home or self-care (01) ==
LOC: ER 09:45
DX: R07.89 Other chest pain (principal); Z88.3 Allergy status to other anti-infective agents; Z88.8 Allergy status to other drugs, medicaments and biological substances
CPT/HCPCS: 36415; 71045; 71275; 80048; 80076; 81003; 81025; 83735; 83880; 84484; 85025; 85379; 85610; 93005; 96374; 96375; 99285; J2270; J2405; Q9967